=== PATIENT | female | born 1945 | race Caucasian/White ===

== ENCOUNTER → 2018-01-04 11:33 | Outpatient (CLI) | payer MEDICARE, BC, SELFPAY ==
--- NOTE | 2018-01-04 11:40 | RAD_ITS ---
STUDY: X-RAY - LEFT FOOT CLINICAL: Female, 72 years old. Fall. Bruising. TECHNIQUE: 3 view(s) of the foot. COMPARISON: None. FINDINGS: There is nondisplaced nonangulated fracture of the fifth proximal phalanx. There is a plantar calcaneal spur. Degenerative changes of the visualized subtalar, talonavicular, calcaneocuboid, tarsal and tarsometatarsal articulations. Normal metatarsi. There is degenerative arthrosis of the metatarsophalangeal joint of the hallux . Normal tibial and fibular sesamoid bones. Normal interphalangeal joint of the great toe. Normal phalanges of the great toe. Normal second through fifth metatarsophalangeal joints. Normal interphalangeal joints and phalanges of the lesser toes. The soft tissue structures are unremarkable. RAD/Foot min 3 Views IMPRESSION: There is nondisplaced nonangulated fracture of the fifth proximal phalanx. Electronically Signed: Noah Laird MD at 20:36 EDT , Service support ,
--- NOTE | 2018-01-04 11:40 | RAD_ITS ---
STUDY: X-RAY - LEFT KNEE REASON FOR EXAM: Female, 72 years old. Left knee pain TECHNIQUE: 4 view(s) of the knee. COMPARISON: None. FINDINGS: Normal visualized distal femur. Normal visualized proximal tibia and fibula. Normal proximal tibiofibular articulation. There is no demonstrated fracture. There is a total knee arthroplasty. There is an articulation between the tibial and femoral prostheses. No malalignment. No gross loosening. Patella is in normal position. The soft tissue structures are unremarkable. RAD/Knee 4 or More Views IMPRESSION: No acute abnormality. Satisfactory appearance of total knee arthroplasty. Electronically Signed: Noah Laird MD at 21:50 EDT , Service support ,
== END ==
PROVIDERS: Visit Provider Physician Assistant
DX: S90.32XA Contusion of left foot, initial encounter (principal); M25.562 Pain in left knee
CPT/HCPCS: 73564; 73630

== ENCOUNTER 2018-02-22 16:29 | Emergency (ER) | payer MEDICARE, BC, SELFPAY ==
[2018-02-22 16:30] VITALS: BP 127/71; PULSE 114; RESP 16; TEMP 37.2; O2SAT 96; BMI 32.5
--- NOTE | 2018-02-22 16:46 | EKG12_ITS ---
Test Reason : CHEST PAIN Blood Pressure : / mmHG Vent. Rate : 096 BPM Atrial Rate : 096 BPM P-R Int : 146 ms QRS Dur : 074 ms QT Int : 368 ms P-R-T Axes : 040 025 028 degrees QTc Int : 464 ms Normal sinus rhythm Normal ECG Confirmed by MAURO RAMACHANDRAN, CANDY ([id number]), editor news MEL GALDAMEZ ([id number]) on 03/01/2018 2:19:46 PM Referred By: DC Confirmed By:CANDY WADE MD
--- NOTE | 2018-02-22 16:51 | RAD_ITS ---
STUDY: X-RAY CHEST REASON FOR EXAM: Female, 72 years old. Sternal and chest pain after reaching injury. TECHNIQUE: Single AP portable view of the chest. COMPARISON: Prior chest radiograph of October 30, 2014. FINDINGS: Negative for pneumothorax, pneumomediastinum or subcutaneous emphysema. Stable appearance of the lungs without new consolidation, focal atelectasis or a substantial pleural effusion. There is no demonstrated pleural abnormality. Normal size heart. Normal mediastinum and lennox. Normal visualized pulmonary arteries. There is atherosclerotic tortuosity of the aortic arch and descending thoracic aorta. Normal visualized thoracic spine. Normal visualized ribs, clavicles, and shoulders. There is no demonstrated abnormality of the visualized soft tissue structures of the upper abdomen. RAD/Chest 1 View (Portable) IMPRESSION: No acute cardiopulmonary findings or changes. Electronically Signed: Hilaria Saravia MD at 17:18 EDT , Service support ,
[2018-02-22 17:37] LABS: Absolute Neutrophil Count 5.7 X10^3/uL (2.0-7.7); Basophil# 0.02 X10^3/uL; Basophil% 0.2 % (0-1); Eosinophil# 0.15 X10^3/uL; Eosinophils% 1.6 % (0-5); Hematocrit 41.6 % (37-47); Hemoglobin 13.8 g/dl (12.0-15.0); Lymphocyte % 28.4 % (19-41); Mean Corp Hgb Conc 33.2 g/gl (32-36); Mean Corpuscular Hgb 31.9 pg (27.0-32.0); Mean Corpuscular Volume 96.1 fL (81-99); Mean Platelet Vol. 9.4 fl (6.2-12.0); Monocyte# 0.92 X10^3/uL; Monocyte% 9.7 % (0-10); Neutrophil # 5.69 X10^3/uL (2.7-7.7); Neutrophil % 59.9 % (47-70); Platelet Count 257 K/mm3 (150-450); RBC Distribution Width CV 13.5 % (11.6-14.6); Red Blood Count 4.33 M/mm3 (4.2-5.4); White Blood Count 9.5 K/mm3 (4.4-11.0)
[2018-02-22 17:38] LABS: POSITIVE COUNT NO; POSITIVE DIFFERENTIAL NO; POSITIVE MORPHOLOGY NO
[2018-02-22] MEDS: Ibuprofen 600 MG Tablet PO (17:40)
--- NOTE | 2018-02-22 17:49 | ED.DCSUM_ITS ---
- ER Visit Summary Date of Service: 02/22/18 Chief Complaint: Chest pain History of Present Illness: The patient is a 72 F with substernal chest pain that started yesterday. She was reaching for a jar from a top shelf and fell. She caught it, but in doing so, she injured her chest. She has pain to her fuentes bsternal region. Worse with breathing and moving. She never had this before. She was taking Tylenol with minimal relief. She does have a history of diabetes, hypertension, and hyperlipidemia. Denies any history of heart disease, PE, or dissection. She has some associated nausea. Physical Examination: Afebrile but tachycardic at 114. Otherwise vitals normal. Alert and oriented. No acute distress. Heart tachycardic but regular. Lungs clear. Abdomen soft and nontender. Pulses strong and equal. Calf soft and supple. Skin normal without pallor or diaphoresis. Test Results: EKG shows sinus rhythm at a rate of 96. CBC normal. BMP and troponin normal. Emergency Department Course and Treatment: Patient presents with likely myofascial pain. Nothing to suggest ACS, PE, or dissection. Given her risk factors, I did check EKG, chest x-ray, and labs. Her workup was unremarkable. She will be treated with a course of Drayden for breakthrough pain. She will follow-up with her outpatient doctor. Return for any new or worsening issues. Treatment Plan: As above Disposition: Discharge Impression: 1. Chest wall pain This note was generated with [employer] dictation software. It may contain incorrect words, spelling, and punctuation that were not noted in review of the chart prior to signing ED Disposition - Plan for ED Patient: Chief Complaint: Chest Other Referrals: Lm Ledesma,Out of [Primary Care Provider] -
[2018-02-22 17:53] LABS: Anion Gap 9 (5-15); BUN 16 mg/dL (7-18); BUN/Creat Ratio 15.5 RATIO (10-20); Calcium,Total 9.4 mg/dL (8.5-10.1); Chloride 103 mmol/L (98-107); Creatinine, Serum 1.03 mg/dL (0.55-1.02); EST Glomerular Filtration Rate 56 mL/min (>60); Est Glom Filt Rate - Afr Amer 67 mL/min (>60); Estimated Creatinine Clearance 43.12 ml/min; Glucose 162 mg/dL (74-106); Potassium 3.5 mmol/L (3.5-5.1); Sodium Level 139 mmol/L (136-145)
--- NOTE | 2018-02-22 18:14 | DCINST.ED_ITS ---
ED Disposition - Plan for ED Patient: Chief Complaint: Chest Other Instructions: ED Strain Chest Wall Prescriptions: Hydrocodone Bitart/Apap 5-325 [[place] 5MG-325MG] 1 tab PO Q6H PRN PRN 2 Days #8 tab PRN Reason: Pain Referrals: [facility],Out of [Primary Care Provider] -
[2018-02-22] MEDS: HYDROcodone Bitartrate/Apap 5/325 Tablet PO (18:25)
[2018-02-22 18:27] VITALS: BP 141/67; PULSE 84; RESP 16; O2SAT 97
== END 2018-02-22 18:30 | disposition home or self-care (01) ==
LOC: ED 17:19
PROVIDERS: Emergency Provider Emergency Medicine
DX: R07.89 Other chest pain (principal); R11.0 Nausea; K21.9 Gastro-esophageal reflux disease without esophagitis; E11.9 Type 2 diabetes mellitus without complications; I10 Essential (primary) hypertension; E78.00 Pure hypercholesterolemia, unspecified; Z79.4 Long term (current) use of insulin; Z79.84 Long term (current) use of oral hypoglycemic drugs; Z79.899 Other long term (current) drug therapy
CPT/HCPCS: 71045; 80048; 84484; 85025; 93005; 99285; A4216

== ENCOUNTER 2020-08-13 13:00 | Outpatient (RCR) | payer MEDICARE, BC, SELFPAY ==
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
== END 2020-08-13 19:00 | disposition home or self-care (01) ==
LOC: PT 13:00
DX: M54.2 Cervicalgia (principal); M54.9 Dorsalgia, unspecified
CPT/HCPCS: 97035; 97140; 97161

== ENCOUNTER 2023-09-17 23:56 | Emergency (ER) | payer MEDICARE, BC, SELFPAY ==
[2023-09-17 23:56] VITALS: BP 130/69; PULSE 100; RESP 16; TEMP 37.6; O2SAT 95; BMI 27.4
[2023-09-18 00:24] VITALS: O2SAT 87
[2023-09-18 00:25] VITALS: O2SAT 91
--- NOTE | 2023-09-18 00:46 | EKG12_ITS ---
Test Reason : CP Blood Pressure : / mmHG Vent. Rate : 093 BPM Atrial Rate : 093 BPM P-R Int : 166 ms QRS Dur : 074 ms QT Int : 374 ms P-R-T Axes : 043 024 028 degrees QTc Int : 465 ms Normal sinus rhythm Normal ECG Confirmed by BERNADETTE RAMACHANDRAN, THO ([id number]), make up editor ANT WATTERS ([id number]) on 09/22/2023 6:11:44 AM Referred By: Confirmed By:MADELYN FLEMING MD
[2023-09-18 00:47] LABS: Absolute Lymphocyte Count 1.87 X10^3/uL (0.83-4.51); Absolute Neutrophil Count 6.9 X10^3/uL (2.0-7.7); Basophil# 0.03 X10^3/uL; Basophil% 0.3 % (0-1); Eosinophil# 0.29 X10^3/uL; Eosinophils% 2.9 % (0-5); Hemoglobin 12.8 g/dL (12.0-15.0); Lymphocyte # 1.87 X10^3/ul (0.83-4.51); Lymphocyte % 18.9 % (19-41); Mean Corp Hgb Conc 33.7 g/dL (32-36); Mean Corpuscular Hgb 31.9 pg (27.0-32.0); Mean Corpuscular Volume 94.8 fL (81-99); Mean Platelet Vol. 10.1 fl (6.2-12.0); Monocyte# 0.82 X10^3/uL; Monocyte% 8.3 % (0-10); NRBC Flagged by Analyzer 0 % (0-5); Neutrophil # 6.87 X10^3/uL (2.7-7.7); Neutrophil % 69.2 % (47-70); Platelet Count 240 K/mm3 (150-450); RBC Distribution Width CV 13.7 % (11.6-14.6); RBC Distribution Width SD 47.7 fl (35.1-43.9); Red Blood Count 4.01 M/mm3 (4.2-5.4); White Blood Count 9.9 K/mm3 (4.4-11.0)
--- NOTE | 2023-09-18 00:48 | RAD_ITS ---
EXAM: XR CHEST, 2 VIEWS CLINICAL INDICATION: chest pain TECHNIQUE: Frontal and lateral views of the chest. COMPARISON: Single view chest 02/22/2018 FINDINGS: LUNGS AND PLEURAL SPACES: Unremarkable. No consolidation or edema. No pneumothorax. No effusion. HEART: Unremarkable. Cardiac silhouette not enlarged. MEDIASTINUM: Central airways and mediastinal contour are unremarkable. BONES/JOINTS: Degenerative changes of the spine. No acute fracture. SOFT TISSUES: Unremarkable. RAD/Chest PA and Lateral IMPRESSION: No acute findings in the chest. Electronically Signed: Torsten Becerra MD at 1:25 EDT ,
[2023-09-18] MEDS: Ketorolac 15 MG/ML Vial IV (00:54)
[2023-09-18 01:00] VITALS: BP 120/55; PULSE 84; RESP 17; O2SAT 93
[2023-09-18 01:01] LABS: D-Dimer Quantitative (DVT/PE) 0.95 FEU/ug/m (0.27-0.49)
[2023-09-18 01:06] LABS: AST(SGOT) 22 U/L (15-37); Alanine Aminotransfer ALT/SGPT 19 U/L (13-56); Albumin, Serum 3.7 g/dL (3.2-5.0); Alkaline Phosphatase 53 U/L (45-117); Anion Gap 11 (5-15); BUN 13 mg/dL (7-18); BUN/Creat Ratio 14.9 RATIO (10-20); Bilirubin, Direct 0.21 mg/dL (0.00-0.30); Calcium,Total 9.7 mg/dL (8.5-10.1); Chloride 104 mmol/L (98-107); Creatinine, Serum 0.87 mg/dL (0.55-1.02); EST Glomerular Filtration Rate 66 mL/min (>60); Est Glom Filt Rate - Afr Amer 80 mL/min (>60); Estimated Creatinine Clearance 51.05 ml/min; Globulin 3.8 g/dL (2.2-4.2); Glucose 170 mg/dL (74-106); Lipase 59 U/L (13-75); Magnesium 1.4 mg/dL (1.6-2.6); Potassium 3.4 mmol/L (3.5-5.1); Protein, Total 7.5 g/dL (6.4-8.2); Sodium Level 136 mmol/L (136-145); Troponin-I HS 9 pg/mL (3.0-54.0)
[2023-09-18 01:34] LABS: Prothrombin Time (Protime)PT. 13.6 SECONDS (11.7-14.9)
[2023-09-18 02:00] VITALS: BP 119/56; PULSE 79; RESP 16; O2SAT 95
--- NOTE | 2023-09-18 02:02 | CT_ITS ---
EXAM: CT ANGIOGRAPHY CHEST WITHOUT AND WITH INTRAVENOUS CONTRAST CLINICAL INDICATION: chest pain with elevated d-dimer TECHNIQUE: Helically acquired angiography images were obtained of the chest without and with intravenous contrast. This CT exam was performed using one or more of the following dose reduction techniques: automated exposure control, adjustment of the mA and/or kV according to patient size, and/or use of iterative reconstruction technique. MIP reconstructed images were created and reviewed. CONTRAST: IV 100mL Isovue-370 RADIATION DOSE: CTDIvol = 10.12 mGy, DLP = 374.32 mGy-cm COMPARISON: No relevant prior studies available. FINDINGS: PULMONARY ARTERIES: Unremarkable. Normal in caliber. No evidence of pulmonary embolism. AORTA: Unremarkable. Normal in caliber. No evidence of dissection. GREAT VESSELS OF AORTIC ARCH: Unremarkable. Normal in caliber. No evidence of dissection. LUNGS AND PLEURAL SPACES: Unremarkable. No mass. No consolidation or edema. No pleural effusion or thickening. No pneumothorax. HEART: Unremarkable. Heart size is normal. No pericardial effusion. No significant coronary artery calcifications. MEDIASTINUM: Unremarkable. No mediastinal or hilar adenopathy. Esophagus is unremarkable. No hiatal hernia. THYROID: Unremarkable. No thyroid lesions. BONES/JOINTS: Degenerative changes of the spine. No suspicious lytic or blastic abnormality. CT/CTA Chest W/WO Contrast IMPRESSION: No pulmonary embolism or other acute abnormality identified. Electronically Signed: Torsten Becerra MD at 2:58 EDT ,
[2023-09-18 02:44] LABS: Troponin-I HS 9 pg/mL (3.0-54.0)
--- NOTE | 2023-09-18 03:34 | EDS_ITS ---
HPI History of Present Illness Chief Complaint: Chest Pain Informant: patient Narrative Narrative: Patient is an 78-year-old female with past medical history of hypertension and hyperlipidemia and type 2 diabetes. She states that this evening she developed chest discomfort while at rest. She states that it seems to start in the lower chest/upper abdomen and radiate into the upper chest/back. She states that there is no associated trauma or excessive activity. She reports that she was concerned this could be cardiac in nature and therefore she presents for evaluation [facility] Medical History (Updated 09/21/23 @ 05:[address] Rocco Bland, DO) stomach abscess Knee pain Diabetes Arthritis HTN (hypertension) Home Medications ?Medication ?Instructions ?Recorded ?Last Taken ?Type simvastatin 40 mg tablet 40 mg PO QHS 06/29/13 Unknown History omeprazole 40 mg capsule,delayed 40 mg PO DAILY 07/22/15 Unknown History release Losartan/Hydrochlorothiazide 1 tab PO DAILY 02/22/18 Unknown History [Hyzaar 100-12.5 Tablet] insulin degludec 100 unit/mL (3 45 units SQ QHS 02/22/18 Unknown History mL) subcutaneous pen (Tresiba FlexTouch U-100 insulin) metformin 500 mg tablet,extended 1,000 mg PO BID 02/22/18 Unknown History release 24 hr Allergy/AdvReac Type Severity Reaction Status Date / Time morphine Allergy Other Verified 09/17/23 23:56 Penicillins Allergy Other Verified 09/17/23 23:56 Social History (Updated 01/23/18 @ 08:[address] Joana Cool, ) Smoking Status: Never smoker alcohol intake: never ROS ROS ED Constitutional Constitutional ED: Denies chills or fever(s) ENT ENT ED: Denies sore throat Cardiovascular Cardiovascular: Reports chest pain; Denies palpitations or racing heartbeat Respiratory/Chest Respiratory/Chest: Denies cough or dyspnea Gastrointestinal Gastrointestinal: Reports abdominal pain; Denies diarrhea, nausea or vomiting Genitourinary Genitourinary ED: Denies dysuria or hematuria Musculoskeletal Musculoskeletal: Reports back pain; Denies myalgias Integumentary Denies rash Neurologic Neurologic: Denies headache(s) Hematologic/Lymphatic Hematologic/Lymphatic: Denies easy bleeding or easy bruising EXAM Physical Exam Const Vital Signs: 09/17/23 23:56 09/17/23 23:56 09/18/23 00:24 Temperature 99.6 F H Temperature Source Temporal Pulse Rate 100 Respiratory Rate 16 Respiratory Effort Normal Non-Labored Blood Pressure 130/69 H Blood Pressure Mean 89 Pulse Ox 95 87 Oxygen Delivery Method Room Air Room Air Oxygen Flow Rate (L/min) 09/18/23 00:25 09/18/23 01:00 09/18/23 02:00 Temperature Temperature Source Pulse Rate 84 79 Respiratory Rate 17 16 Respiratory Effort Blood Pressure 120/55 L 119/56 L Blood Pressure Mean 76 77 Pulse Ox 91 93 95 Oxygen Delivery Method Nasal Cannula Nasal Cannula Room Air Oxygen Flow Rate (L/min) 2 Positive well nourished, well developed and obese General Appearance ED: well developed; Negative for pallor Nutritional Appearance: obese HEENT HEENT Narrative: Normocephalic atraumatic Eyes PERRL and EOMs intact bilaterally General Eye ED: Negative for scleral icterus Neck supple Neck Narrative: No nuchal rigidity or meningeal signs Chest Wall palpation of chest normal Chest Narrative: No bony deformity or crepitance of the chest wall noted Resp normal respiratory effort and clear to auscultation bilaterally Cardio regular rate and regular rhythm Rate: other Other Details: Heart is regular rate and rhythm Radial and carotid pulses are equal and symmetric GI normal to inspection, nondistended, normoactive bowel sounds, non-tender, non- distended and no masses GI Narrative: No pulsatile mass or fluid wave Auscultation: normoactive bowel sounds Palpation: soft Extremity normal to inspection Extremity Narrative: Negative Homans' sign bilaterally Neuro oriented x3, CN's II-XII intact bilaterally and no sensory deficits noted Sensorium / Orientation: alert Motor Exam: strength 5/5 throughout Psych mental status grossly normal Skin no rashes or lesions noted and no wounds General Skin Exam: Negative for jaundice or pallor MDM MDM MDM Narrative Medical decision making narrative: Patient presented to the ER with low-grade fever but otherwise stable vitals. She reported chest discomfort but also had pain along the lower mid chest to upper abdomen. Differential diagnosis is for acute coronary syndrome versus cardiac dysrhythmia versus pneumonia versus pneumothorax versus pulmonary embolus. Patient blood work was obtained that showed a normal troponin of 9 with a delta that stayed flat at 9 going against acute coronary syndrome. Chest x-ray revealed no signs of acute lung pathology. The patient's D-dimer however was elevated for her age and secondary to this a CTA was obtained. CTA revealed no signs of PE or dissection or missed pneumonia. On reevaluation she has had improvement of her pain with time. Therefore as workup does not reveal signs of acute coronary syndrome and CTA is not showing pulmonary embolus pneumonia pneumothorax or dissection I do not feel there is need to keep her in the hospital for further evaluation and she is otherwise safe for discharge Lab Data Attestation: I reviewed the patient's lab results. Labs: Laboratory Results - last 24 hr 09/18/23 00:01 B-Natriuretic Peptide 50.9 Radiography Diagnostic Testing: Clinical Impression(s) from Imaging Studies Chest X-Ray 09/18/23 00:48 IMPRESSION: No acute findings in the chest. Electronically Signed: Torsten Becerra MD at 1:25 EDT Reading Location ID and State: [id number] / [employer] , Service support , Chest CTA 09/18/23 02:02 IMPRESSION: No pulmonary embolism or other acute abnormality identified. Electronically Signed: Torsten Becerra MD at 2:58 EDT , 2 view chest x-ray as interpreted by the emergency medicine physician reveals no acute infiltrate pneumothorax pleural effusion or widened mediastinum Discharge Plan Triage Chief Complaint: Chest Pain ED Provider: Rocco Bland Dx/Rx/DC Orders Clinical Impression: Nonspecific chest pain, Diabetes, Hypertension Instructions: ED Chest Pain, Uncertain Cause Prescriptions: No Action simvastatin 40 MG tablet 40 mg PO QHS Patient Comments: reduce cholesterol omeprazole 40 MG capsule,delayed release(DR/EC) 40 mg PO DAILY Patient Comments: reduce stomach acid metformin 500 MG tablet 1,000 mg PO BID insulin degludec [Tresiba FlexTouch U-100] 100 insulin pen 45 units SQ QHS Losartan/Hydrochlorothiazide [Hyzaar 100-12.5 Tablet] 1 TAB tablet 1 tab PO DAILY Primary Care Provider: Care Physician,No Primary Referrals: Care Physician,No Primary [Primary Care Provider] - Activity Restrictions/Additional Instructions: Please follow-up with your family doctor for repeat evaluation and return to the ER should you have any further concerns. As you reported feeling your heart beat fast and hard at home there is a possibility that you are in an abnormal heart rhythm. However your ER workup shows no signs of cardiac dysrhythmia no signs of blood clot or pneumonia or signs of heart damage. Print Language: Bolivian Disposition Disposition: Home, Self Care Discharge Date/Time: 09/18/23 04:07
[2023-09-18 04:06] VITALS: BP 132/76; PULSE 82; RESP 16; TEMP 36.7; O2SAT 99
[2023-09-20 12:19] LABS: BNP,B-Type NATRIURETIC PEPTIDE 50.9 pg/mL (0-100)
== END 2023-09-18 04:07 | disposition home or self-care (01) ==
PROVIDERS: Emergency Provider Emergency Medicine; Visit Provider Emergency Medicine
DX: R07.9 Chest pain, unspecified (principal); E11.9 Type 2 diabetes mellitus without complications; Z79.4 Long term (current) use of insulin; E78.5 Hyperlipidemia, unspecified; I10 Essential (primary) hypertension; Z79.899 Other long term (current) drug therapy; Z79.84 Long term (current) use of oral hypoglycemic drugs; E66.9 Obesity, unspecified
CPT/HCPCS: 71046; 71275; 80048; 80076; 83690; 83735; 83880; 84484; 85025; 85379; 85610; 85730; 93005; 96374; 99283; Q9967; A4216